=== PATIENT | male | born 1955 | race Caucasian/White ===

== ENCOUNTER 2017-05-09 00:24 | Emergency (ER) | payer MEDICARE ==
[2017-05-09] MEDS ORDERED: ACETAMINOPHEN 325 MG TABLET PO ONE (00:32)
--- NOTE | 2017-05-09 00:53 | ER Document Report ---
ED General - General Chief Complaint: Fall Stated Complaint: FALL HEAD INJURY Time Seen by Provider: 05/09/17 00:38 Mode of Arrival: Wheelchair Information source: Patient, Relative Notes: 61-year-old male with a history of Lewy body dementia, orthostatic hypotension presents after a trip and fall at home where he struck his head on the wall. Patient denies loss of consciousness. He and his do admit to multiple falls secondary to the Lewy body dementia. Patient is currently denying headache, changes in vision, nausea, vomiting, chest pain or shortness of breath. Last tetanus was one week prior to arrival. Denies any blood thinning medications. TRAVEL OUTSIDE OF THE [place] IN LAST 30 DAYS: No - HPI Onset: Just prior to arrival Quality of pain: Dull Severity: Mild Associated symptoms: denies: Earache, Headache Exacerbated by: Denies Relieved by: Denies Similar symptoms previously: Yes - Related Data Allergies/Adverse Reactions: amoxicillin Allergy (Verified 05/09/17 00:33) cephalexin [From Keflex] Allergy (Verified 05/09/17 00:33) haloperidol [From Haldol] Allergy (Verified 05/09/17 00:33) Penicillins Allergy (Verified 05/09/17 00:33) Past Medical History - General Information source: Patient, Relative Cannot obtain history due to: Dementia - Social History Smoking Status: Never Smoker Frequency of alcohol use: None Drug Abuse: None Lives with: Spouse/Significant other Family History: Reviewed & Not Pertinent Patient has suicidal ideation: No Patient has homicidal ideation: No - Past Medical History Cardiac Medical History: Reports: Other - Ortho-Static hypotension Pulmonary Medical History: Reports: None Psychiatric Medical History: Reports: Hx Dementia - Ritchie body dementia with parkinsonisms Review of Systems - Review of Systems Constitutional: See HPI. denies: Fever, Weakness EENT: denies: Blurred vision Cardiovascular: denies: Chest pain, Palpitations Respiratory: denies: Short of breath Gastrointestinal: denies: Abdominal pain, Nausea Musculoskeletal: Muscle stiffness Neurological/Psychological: Dementia, Gait changes Physical Exam - Vital signs Vitals: Temp Pulse Resp BP Pulse Ox 98.3 F 62 16 123/74 98 05/09/17 00:29 05/09/17 00:29 05/09/17 00:29 05/09/17 00:29 05/09/17 00:29 - HEENT Head: Atraumatic, Other - Stellate laceration to the forehead Eyes: Normal Conjunctiva: Normal Pupils: PERRL Ears: Normal External canal: No: Blood in canal Tympanic membrane: No: Hemotympanum Sinus: Normal Nasal: No: Bloody discharge, Shannen deformity Mouth/Lips: Normal Mucous membranes: Dry - Respiratory Respiratory status: No respiratory distress Chest status: Nontender Breath sounds: Normal Chest palpation: Normal - Skin Skin Temperature: Warm - Abrasions to the right fourth and fifth finger, abrasion to left knee, 2 cm stellate laceration to the forehead associated skin avulsion. Skin Moisture: Dry Skin Color: Normal Course - Re-evaluation Re-evalutation: 05/09/17 02:22 61-year-old male with a history of Lewy body dementia presents after a trip and fall at home where he struck his head against the wall. He denies any loss of consciousness. Patient and report multiple falls secondary to parkinsonism. Upon arrival vitals reviewed. Patient does not appear toxic or dehydrated. He is in no acute distress. Exam is significant for multiple areas of ecchymosis, multiple abrasions of varying healing times. Patient also has a small 1.5 cm stellate laceration with associated skin avulsion on his forehead. CT of the head and neck were obtained and showed no acute process. Laceration repair was performed after thorough irrigation with Dermabond. He was discharged home in stable condition. Cervical Spine CT 05/09/17 00:52 IMPRESSION: 1. No acute fracture or subluxation of the cervical spine. This exam was performed according to our departmental dose-optimization program, which includes automated exposure control, adjustment of the mA and/or kV according to patient size and/or use of iterative reconstruction technique. Head CT 05/09/17 00:52 IMPRESSION: 1. No acute intracranial abnormality by CT criteria. This exam was performed according to our departmental dose-optimization program, which includes automated exposure control, adjustment of the mA and/or kV according to patient size and/or use of iterative reconstruction technique. - Vital Signs Vital signs: Temp Pulse Resp BP Pulse Ox 98.3 F 62 16 123/74 98 05/09/17 00:29 05/09/17 00:29 05/09/17 00:29 05/09/17 00:29 05/09/17 00:29 Procedures - Laceration/Wound Repair Face Time completed: 02:21 Wound length (cm): 1.5 Wound's Depth, Shape: Stellate Laceration pre-procedure: Shur-Clens applied Wound explored: Clean Wound Repaired With: Dermabond Layer Closure?: No Discharge - Discharge Clinical Impression: Forehead laceration Qualifiers: Encounter type: initial encounter Qualified Code(s): S01.81XA - Laceration without foreign body of other part of head, initial encounter Lewy body dementia Qualifiers: Dementia behavioral disturbance: without behavioral disturbance Qualified Code( s): G31.83 - Dementia with Lewy bodies; F02.80 - Dementia in other diseases classified elsewhere without behavioral disturbance; F02.80 - Dementia in other diseases classified elsewhere without behavioral disturbance; F02.80 - Dementia in other diseases classified elsewhere without behavioral disturbance Fall Qualifiers: Encounter type: initial encounter Qualified Code(s): W19.XXXA - Unspecified fall, initial encounter Disposition: HOME, SELF-CARE Instructions: Facial Laceration ([facility]) Referrals: MARY BLAKE MD [Primary Care Provider] - Follow up in 1 week
--- NOTE | 2017-05-09 01:25 | RADIOLOGY REPORT (SQ) ---
EXAM DESCRIPTION: CT HEAD WITHOUT CLINICAL HISTORY: Fall/injury. COMPARISON: None available TECHNIQUE: Axial CT of the head obtained from the skull apex to the skull base without contrast. FINDINGS: No acute intracranial hemorrhage identified. No mass, mass effect, shift of the midline, abnormal extra-axial fluid collection or CT evidence of acute ischemic change identified. The ventricular system is unremarkable. No acute abnormalities of the supratentorial white matter, basal ganglia, cerebellum, or brainstem. Dense opacification of the paranasal sinuses. Mastoid air cells are well aerated. No skull fracture identified. Visualized orbits and globes are unremarkable. DLP:995.66 mGy-cm IMPRESSION: 1. No acute intracranial abnormality by CT criteria. This exam was performed according to our departmental dose-optimization program, which includes automated exposure control, adjustment of the mA and/or kV according to patient size and/or use of iterative reconstruction technique.
--- NOTE | 2017-05-09 01:27 | RADIOLOGY REPORT (SQ) ---
EXAM DESCRIPTION: CT CERVICAL SPINE WITHOUT CLINICAL HISTORY: Fall COMPARISON: None available TECHNIQUE: Axial CT of the cervical spine obtained without contrast. FINDINGS: Alignment of the cervical spine is maintained without evidence of subluxation. The atlantoaxial, atlantodental, and occipitoatlantal intervals are preserved. No fracture identified. Vertebral body height preserved. Prevertebral soft tissues are unremarkable. Loss of intervertebral disc height at C4/5 through C6/7 with endplate spondylosis and uncovertebral spurring. No significant central canal nor neural foraminal narrowing. Mild spurring at the atlantodental articulation. Mild facet arthropathy Visualized skull base is intact. No fracture of the visualized facial bones. Visualized mastoid air cells are well aerated. Visualized thyroid is unremarkable. No cervical lymphadenopathy. No pneumothorax in the visualized lung apices. DLP: 410.68 mGy-cm IMPRESSION: 1. No acute fracture or subluxation of the cervical spine. This exam was performed according to our departmental dose-optimization program, which includes automated exposure control, adjustment of the mA and/or kV according to patient size and/or use of iterative reconstruction technique.
[2017-05-09 03:34] VITALS: BP 138/74
== END 2017-05-09 03:31 | disposition home or self-care (01) ==
LOC: ER 00:24
DX: S01.81XA Laceration without foreign body of other part of head, initial encounter (principal); S60.414A Abrasion of right ring finger, initial encounter; S60.416A Abrasion of right little finger, initial encounter; S80.212A Abrasion, left knee, initial encounter; W01.0XXA Fall on same level from slipping, tripping and stumbling without subsequent striking against object, initial encounter; Y92.000 Kitchen of unspecified non-institutional (private) residence as the place of occurrence of the external cause; G20 Parkinson's disease; F02.80 Dementia in other diseases classified elsewhere, unspecified severity, without behavioral disturbance, psychotic disturbance, mood disturbance, and anxiety; Z88.0 Allergy status to penicillin; Z88.1 Allergy status to other antibiotic agents; Z88.8 Allergy status to other drugs, medicaments and biological substances
CPT/HCPCS: 99284; 70450; 72125; 12011; A9270